=== PATIENT | female | born 1985 | race Asian ===

== ENCOUNTER → 2023-08-23 09:19 | Outpatient (REF) | payer OTHER, SELFPAY | LOC: PNTC 09:19 | PROVIDERS: ATTENDING PHYSICIAN Obstetrics & Gynecology | DX: O99.210 Obesity complicating pregnancy, unspecified trimester (principal); O09.529 Supervision of elderly multigravida, unspecified trimester; O66.0 Obstructed labor due to shoulder dystocia | CPT/HCPCS: 59025; 76816 ==

== ENCOUNTER → 2023-08-30 10:44 | Outpatient (REF) | payer OTHER, SELFPAY | LOC: PNTC 10:44 | PROVIDERS: ATTENDING PHYSICIAN Obstetrics & Gynecology | DX: O24.419 Gestational diabetes mellitus in pregnancy, unspecified control (principal); O99.210 Obesity complicating pregnancy, unspecified trimester; O09.529 Supervision of elderly multigravida, unspecified trimester; O24.414 Gestational diabetes mellitus in pregnancy, insulin controlled | CPT/HCPCS: 59025; 76815 ==

== ENCOUNTER 2023-09-01 17:02 | Observation (INO) | payer OTHER, SELFPAY ==
[2023-09-01 17:20] VITALS: BP 128/55; BMI 47.3
== END 2023-09-01 18:53 | disposition home or self-care (01) ==
LOC: LDRP 17:02
PROVIDERS: ADMITTING PHYSICIAN Obstetrics & Gynecology
DX: O36.8130 Decreased fetal movements, third trimester, not applicable or unspecified (principal); Z3A.33 33 weeks gestation of pregnancy
CPT/HCPCS: 76819; G0378

== ENCOUNTER → 2023-09-06 09:22 | Outpatient (REF) | payer OTHER, SELFPAY | LOC: PNTC 09:22 | PROVIDERS: ATTENDING PHYSICIAN Obstetrics & Gynecology | DX: O99.210 Obesity complicating pregnancy, unspecified trimester (principal); O09.529 Supervision of elderly multigravida, unspecified trimester; O66.0 Obstructed labor due to shoulder dystocia | CPT/HCPCS: 59025; 76815 ==

== ENCOUNTER → 2023-09-13 09:22 | Outpatient (REF) | payer OTHER, SELFPAY | LOC: PNTC 09:22 | PROVIDERS: ATTENDING PHYSICIAN Obstetrics & Gynecology | DX: O09.529 Supervision of elderly multigravida, unspecified trimester (principal); O99.210 Obesity complicating pregnancy, unspecified trimester; O66.0 Obstructed labor due to shoulder dystocia | CPT/HCPCS: 59025; 76815 ==

== ENCOUNTER 2023-09-14 15:23 | Observation (INO) | payer OTHER, SELFPAY ==
[2023-09-14 16:06] VITALS: BMI 48.2
[2023-09-14 16:15] LABS: Hematocrit 28.8 % (37.0-47.0); Hemoglobin 9.3 g/dL (12.0-16.0); Mean Corp Hgb Conc. 32.3 g/dL (33.0-37.0); Mean Corpuscular Hgb 24.8 pg (27.0-31.0); Mean Corpuscular Volume 76.8 fL (81.0-99.0); Mean Platelet Volume 12.3 fL (7.4-10.4); Platelet Count 231 10^3/uL (130-400); Red Blood Cell Count 3.75 10^6/uL (4.20-5.40); Red Cell Dist. Width 14.6 % (11.5-14.5); White Blood Cell Count 13.1 10^3/uL (4.8-10.8)
[2023-09-14 16:32] LABS: Urine Albumin Trace (Neg - Trace); Urine Bilirubin Negative (Negative); Urine Character Slightly Cloudy (Clear); Urine Color Yellow; Urine Glucose Negative (Negative); Urine Ketone Negative (Negative); Urine Leukocyte 1+ (Negative); Urine Nitrite Negative (Negative); Urine Occult Blood Negative (Negative); Urine Urobilinogen Negative (Neg - 1+)
[2023-09-14 16:39] LABS: Urine Squamous Cell >30 /LPF (Few)
[2023-09-14 16:40] LABS: Urine Bacteria Many (Negative); Urine Red Blood Cell 0-2 /HPF (0-2)
[2023-09-14 16:49] LABS: Protein/creatinine Ratio 0.1; Urine Protein 13 mg/dl
[2023-09-14 17:20] VITALS: BP 120/75
[2023-09-14 17:53] LABS: ALT (SGPT) 13 U/L (0-35); AST (SGOT) 20 U/L (14-36); Albumin 2.6 g/dl (3.5-5.0); Alkaline Phosphatase 148 U/L (38-126); Blood Urea Nitrogen 11 mg/dl (7-17); Calcium 8.7 mg/dl (8.4-10.2); Carbon Dioxide 22 mmol/L (22-30); Chloride 107 mmol/L (98-107); Estimated Creatinine Clearance > 125 ml/min; Glucose 101 mg/dl (70-99); Potassium 4.5 mmol/L (3.5-5.1); Sodium 132 mmol/L (135-145); Total Bilirubin 0.3 mg/dl (0.2-1.3); Total Protein 5.9 g/dl (6.3-8.2); eGFR > 60.00
== END 2023-09-14 18:16 | disposition home or self-care (01) ==
LOC: LDRP 15:23
PROVIDERS: ADMITTING PHYSICIAN Obstetrics & Gynecology; FAMILY PHYSICIAN Obstetrics & Gynecology
DX: Z03.79 Encounter for other suspected maternal and fetal conditions ruled out (principal); R03.0 Elevated blood-pressure reading, without diagnosis of hypertension
CPT/HCPCS: 80053; 81003; 81015; 82570; 84156; 85027; G0378

== ENCOUNTER → 2023-09-17 08:46 | Outpatient (REF) | payer OTHER, SELFPAY | LOC: PNTC 08:46 | PROVIDERS: ATTENDING PHYSICIAN Obstetrics & Gynecology | DX: O24.419 Gestational diabetes mellitus in pregnancy, unspecified control (principal) | CPT/HCPCS: 76816 ==

== ENCOUNTER → 2023-09-20 09:10 | Outpatient (REF) | payer OTHER, SELFPAY | LOC: PNTC 09:10 | PROVIDERS: ATTENDING PHYSICIAN Obstetrics & Gynecology | DX: O09.529 Supervision of elderly multigravida, unspecified trimester (principal); O99.210 Obesity complicating pregnancy, unspecified trimester; G24.9 Dystonia, unspecified | CPT/HCPCS: 59025; 87070 ==

== ENCOUNTER 2023-09-24 09:20 | Inpatient (IN) | payer OTHER, SELFPAY ==
[2023-09-24 09:44] LABS: Glucose - Point of Care 112 mg/dl (70-99)
[2023-09-24] MEDS: LR 1000 IV (09:45)
[2023-09-24 09:49] VITALS: BP 104/52; BMI 50.1
[2023-09-24 10:05] LABS: Hematocrit 30.3 % (37.0-47.0); Hemoglobin 9.5 g/dL (12.0-16.0); Mean Corp Hgb Conc. 31.4 g/dL (33.0-37.0); Mean Corpuscular Hgb 24.4 pg (27.0-31.0); Mean Corpuscular Volume 77.7 fL (81.0-99.0); Mean Platelet Volume 12.4 fL (7.4-10.4); Platelet Count 237 10^3/uL (130-400); White Blood Cell Count 12.3 10^3/uL (4.8-10.8)
[2023-09-24] MEDS: TYLENOL 1000 MG PO (10:19)
[2023-09-24] MEDS: ANCEF 10 IV (10:19)
[2023-09-24] MEDS: BICITRA 30 ML PO (10:19)
[2023-09-24] MEDS: PITOCIN 30 UNITS/NSS 500 ML IV (12:10)
[2023-09-24] MEDS: TORADOL 15 MG IV (17:45)
[2023-09-25] MEDS: TORADOL 15 MG IV ×3 (00:24→12:17)
[2023-09-25] MEDS: ADVAIR HFA 45/21 MCG INHALER INH (06:21)
--- NOTE | 2023-09-25 06:21 | PTCARENOTE ---
Patient stated that she used her own inhalers yesterday and ProAir this morning. Confirmed and informed patient that Respiratory Therapy will be around to administer future respiratory medications. Patient in agreement with plan.
[2023-09-25 06:23] LABS: Hematocrit 25.6 % (37.0-47.0); Hemoglobin 8.1 g/dL (12.0-16.0); Mean Corp Hgb Conc. 31.6 g/dL (33.0-37.0); Mean Corpuscular Hgb 24.4 pg (27.0-31.0); Mean Corpuscular Volume 77.1 fL (81.0-99.0); Mean Platelet Volume 12.6 fL (7.4-10.4); Platelet Count 224 10^3/uL (130-400); Red Blood Cell Count 3.32 10^6/uL (4.20-5.40); White Blood Cell Count 16.6 10^3/uL (4.8-10.8)
--- NOTE | 2023-09-25 07:55 | W.PN.ANS.POP ---
Anesthesia Post Operative
- Anesthesia Post Op Note
Vital Signs Stable-See Nursing Note: Yes
Airway Patent: Yes
Adequate Pain Control: Yes
Change in Mental Status: No
Current Postoperative Nausea & Vomiting: No
Anesthesia Complications: No
General Anesthetic Recall: No
Unplanned Admission: No
Post Op Hydration Adequate: Yes
[2023-09-25] MEDS: ADVAIR HFA 45/21 MCG INHALER 2 PUFF INH ×2 (07:57→20:40)
[2023-09-25] MEDS: VENTOLIN NEBULES 2.5 MG INH (12:21)
[2023-09-25 17:41] LABS: Syphilis/T. pallidum Ab Reflex Negative (Negative)
[2023-09-25] MEDS: SENOKOT-S 1 TABLET PO (18:05)
[2023-09-25] MEDS: TYLENOL 650 MG PO (18:05)
[2023-09-25] MEDS: PRENATAL PLUS PO (18:05)
[2023-09-25] MEDS: FEOSOL PO (18:05)
[2023-09-25] MEDS: MOTRIN 600 MG PO (18:05)
[2023-09-26] MEDS: TYLENOL 650 MG PO ×2 (00:51→09:02)
[2023-09-26] MEDS: MOTRIN 600 MG PO ×4 (00:51→23:04)
[2023-09-26] MEDS: ADVAIR HFA 45/21 MCG INHALER 2 PUFF INH (08:15)
[2023-09-26] MEDS: PRENATAL PLUS 1 TABLET PO (09:01)
[2023-09-26] MEDS: FEOSOL 325 MG PO (09:01)
[2023-09-26] MEDS: SENOKOT-S 1 TABLET PO (09:02)
[2023-09-26] MEDS: ADVAIR HFA 45/21 MCG INHALER INH (21:30)
[2023-09-27] MEDS: MOTRIN 600 MG PO (05:55)
[2023-09-27] MEDS: ADVAIR HFA 45/21 MCG INHALER INH (08:22)
[2023-09-27] MEDS: PRENATAL PLUS 1 TABLET PO (08:23)
[2023-09-27] MEDS: SENOKOT-S 1 TABLET PO (08:23)
[2023-09-27] MEDS: FEOSOL 325 MG PO (08:23)
== END 2023-09-27 10:35 | disposition home or self-care (01) | DRG 788 ==
LOC: LDRP 09:20
PROVIDERS: ADMITTING PHYSICIAN Obstetrics & Gynecology
PROC: 10D00Z1 Extraction of Products of Conception, Low, Open Approach (ICD-10-PCS; 2023-09-24)
DX: O13.4 Gestational [pregnancy-induced] hypertension without significant proteinuria, complicating childbirth (principal); O24.424 Gestational diabetes mellitus in childbirth, insulin controlled; O99.52 Diseases of the respiratory system complicating childbirth; J45.909 Unspecified asthma, uncomplicated; O99.02 Anemia complicating childbirth; D64.9 Anemia, unspecified; Z37.0 Single live birth; Z3A.37 37 weeks gestation of pregnancy; Z87.59 Personal history of other complications of pregnancy, childbirth and the puerperium
CPT/HCPCS: 88307; 82962; 85027; 86780; 86850; 86900; 86901; 94640

== ENCOUNTER → 2024-03-05 14:16 | Outpatient (REF) | payer OTHER, SELFPAY | LOC: WDC 14:16 | PROVIDERS: ATTENDING PHYSICIAN Nurse Practitioner Family; FAMILY PHYSICIAN Emergency Medicine | DX: N63.10 Unspecified lump in the right breast, unspecified quadrant (principal); N63.12 Unspecified lump in the right breast, upper inner quadrant | CPT/HCPCS: 76642 ==